=== PATIENT | male | born 1965 | race Caucasian/White ===

== ENCOUNTER 2022-04-21 18:32 | Emergency (ER) | payer OTHER, SELFPAY ==
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
[2022-04-21 19:15] VITALS: BP 175/103; PULSE 69; RESP 16; TEMP 36.4; O2SAT 99
[2022-04-21 21:10] VITALS: BP 183/119; PULSE 75; RESP 16; O2SAT 96
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
[2022-04-21 21:52] VITALS: BP 182/120
== END 2022-04-21 22:06 | disposition home or self-care (01) ==
PROVIDERS: Emergency Provider Emergency Medicine
DX: S16.1XXA Strain of muscle, fascia and tendon at neck level, initial encounter (principal); S29.9XXA Unspecified injury of thorax, initial encounter; R03.0 Elevated blood-pressure reading, without diagnosis of hypertension; V49.40XA Driver injured in collision with unspecified motor vehicles in traffic accident, initial encounter
CPT/HCPCS: 72125; 72128; 72131; 99284